=== PATIENT | female | born 1980 | race Caucasian/White ===

== ENCOUNTER 2017-05-13 22:39 | Emergency (ER) | payer OTHER ==
[~2017-05-13 22:39] MED LIST: BACTRIM DS TABL1 TA1 PO; NO MEDICATIONS; NORCO 7.5-3251 EACH PO; PERCOCET 5-3251 TAB PO
== END 2017-05-14 01:50 | disposition home or self-care (01) ==
LOC: CED 22:39
DX: K04.7 Periapical abscess without sinus (principal); K02.9 Dental caries, unspecified; F17.210 Nicotine dependence, cigarettes, uncomplicated
CPT/HCPCS: 99282